=== PATIENT | female | born 1985 | race Caucasian/White ===

== ENCOUNTER 2021-03-27 14:12 | Emergency (ER) | payer OTHER, SELFPAY ==
[2021-03-27 14:36] VITALS: BP 140/91; PULSE 100; RESP 18; TEMP 36.8; O2SAT 98; BMI 30.5
[2021-03-27 14:45] LABS: Adenovirus,PCR Not Detected (NotDetected); Bordetella Pertussis Not Detected (NotDetected); Chlamydophila Pneumoniae, PCR Not Detected (NotDetected); Coronavirus 19, PCR Not Detected (NotDetected); Coronavirus 229E Not Detected (NotDetected); Coronavirus NL63 Not Detected (NotDetected); Coronavirus OC43 Not Detected (NotDetected); Coronovirus HKU1,PCR Not Detected (NotDetected); Human Metapneumovirus Not Detected (NotDetected); Influenza A, PCR Not Detected (NotDetected); Influenza AH1, 2009 Not Detected (NotDetected); Influenza AH1, PCR Not Detected (NotDetected); Influenza AH3,PCR Not Detected (NotDetected); Influenza B, PCR Not Detected (NotDetected); Mycoplasma Pneumoniae, PCR Not Detected (NotDetected); Parainfluenza 1, PCR Not Detected (NotDetected); Parainfluenza 2, PCR Not Detected (NotDetected); Parainfluenza 3, PCR Not Detected (NotDetected); Parainfluenza 4, PCR Not Detected (NotDetected); Respiratory Syncytial Virus Not Detected (NotDetected); Rhinovirus/Enterovirus Not Detected (NotDetected)
[2021-03-27 14:50] LABS: UTC Strep Screen (Rapid) Negative (Negative)
--- NOTE | 2021-03-27 14:59 | HMH.EDUTC ---
[facility] Disposition Clinical Impression: Fever, unknown origin Disposition: Home, Self-Care Condition on Discharge: Good Instructions: DI for Fever (Symptom) -- Adult, DI for COVID-19 (Suspected or Confirmed ), Preventing the Spread of Coronavirus Discharge Instructions Additional Instructions: *Monitor Temp, Over the counter Motrin or Tylenol as directed/as needed Tylenol every 4 hours and Motrin every 6 hours (as long as your family doctor has told you that you can take it) for fever or pain. and straight to ER if unable to lower temp less than 101.0 after medication given *Warm salt water gargles may help to soothe the throat *Throat Lozenges *Warm fluids like tea with honey may help to soothe the throat *Sleep elevated *Humidifier/Vaporizer Drink extra fluids with and between meals. If you have difficulty drinking, try very small amounts of water or suck on ice chips. ? Avoid fruit juices, as these do not replace minerals and can actually increase diarrhea. ? Children and adults can use sports drinks to replenish electrolytes. Younger children and infants should use products formulated for children, like oral rehydration solutions. ? Eat food in small amounts and let your stomach recover. ? Get lots of rest. You may feel tired or weak. ? No greasy or fried foods for the next 24-48 hours BRAT diet Bananas Rice Apples and [place] ? Make sure to drink plenty of liquids ? Return if needed ? Straight to ER if any life threatening symptoms ? Zofran as prescribed ? Follow up with family doctor in the next 48-72 hours if no improvement or any worsening of symptoms Follow up IMMEDIATELY for new or worsening symptoms or no Noticeable improvement over the next 48-72 hours. 911 for difficulty breathing or swallowing Prescriptions: Ondansetron [Zofran 4mg ODT] 4 mg PO TIDP PRN #20 tab PRN Reason: Nausea Transmission Status: Pending to [facility] #[id number] Referrals: Alonso Mayberry MD [Primary Care Provider] - As needed Time of Disposition: 15:50 Medical Decision Making - Willy Inquiry Pt receiving controlled substance: No Willy was queried for this patient: No Vital Signs: 03/27/21 14:36 Temperature 98.3 F Temperature Source Oral Pulse Rate [Left] 100 H Respiratory Rate 18 Blood Pressure [Right Arm] 140/91 H Blood Pressure Mean [Right Arm] 107 02 Sat by Pulse Oximetry 98 - Lab Data Lab Results 03/27/21 14:35: Strep Scn Rapid Clinic Negative Orders (Tests/Meds): ORDERS Category Date Time Status Full Resp Panel w/COVID ([facility]) Routine Lab 03/27/21 14:40 Received Strep Screen Confirmation Stat Micro 03/27/21 14:35 Received Medical Decision Narrative: Patient states that she has taken zofran in the past without complications or reactions [facility] HPI - General Stated complaint: fever, vomiting Time Seen by Provider: 03/27/21 14:59 Mode of Arrival: Ambulatory Source of Information: Patient Limitations: No Limitations Description of Symptoms (Recalled from Triage Doc. by RN): pt states she has taken 3 neg covid tests over the past two weeks. pt c/o low grade fever, n/v, weakness, HERRERA and neck pain. HEENT Symptoms (Recalled from RN notes): Yes (HERRERA) Resp Symptoms (Recalled from RN notes): No Skin Symptoms (Recalled from RN notes): No MS Symptoms (Recalled from RN notes): Yes (neck pain) Functional Status (Recalled from RN notes): weakness and low grade fever - History of Present Illness Provider Complaint: Patient states that she hasnt felt well on and off for the last 3-4 days States that she has been having fever, on and off, headache, body aches, and chills States that she has had several COVID tests over the last few weeks States that she was feeling better yesterday then last night she had a fever again and was unable to go to work today States that now she is feeling better but still feeling achy so she came in to get checked out again - Related Data Previous Rx's Medication Instructi
[2021-03-27 16:00] VITALS: BP 140/91; PULSE 100; RESP 18; TEMP 36.8
== END 2021-03-27 16:02 | disposition home or self-care (01) ==
PROVIDERS: Emergency Provider Nurse Practitioner; PCP Family Medicine
DX: R50.9 Fever, unspecified (principal); R11.10 Vomiting, unspecified; Z20.822 Contact with and (suspected) exposure to COVID-19
CPT/HCPCS: 87581; 87632; 87798; 87880; 99203; C9803; G0463; U0003; U0005